=== PATIENT | female | born 1975 | race Caucasian/White ===

== ENCOUNTER 2018-05-10 10:54 | Day surgery (SDC) | payer BC ==
[~2018-05-10] VITALS: Ht 180.3 cm; Wt 90.3 kg
[~2018-05-10 10:54] MED LIST: ACET325; ACET500; ALBU90OI INH; AMOCLA875 PO; AMOX500 PO; AZIT250 PO; CEFD300 PO; CEPH500 PO; CETI10 PO; CIPR500 PO; COLD; CYCL10 PO; DIAZ5 PO; DIPH25; DIPH50 PO; ESCI10; ESCI10 PO; ESCI20; GABA300 PO; GUAI600T33; GUAPHELA PO; HYDACE5 PO; HYDCHL50 PO; IBUP200; IBUP800; INSULANPEN SC; LISI5 PO; LITH300C; METF500 PO; METH10 PO; Metformin HCl500 MG PO; NAPR220; NAPR500; NAPR550 PO; ONDA4 PO; OXYACE5T PO; OXYC10TA19 PO; OXYC5 PO; OXYM.05NI; PENVK500 PO; PRED10 PO; PROACE100 PO; PROM25 PO; Prinivil10 MG PO; RXDIPATR PO; RXNAPNA550 PO; RXONDA4ODT MM; RXPROM25 PO; SULTRIDS PO; VALA500 PO; VENL75ER; Zofran Odt4 MG SL; [UNRECOGNIZED DRUG - OTHER]; [UNRECOGNIZED DRUG - REMARK]
== END 2018-05-10 12:35 | disposition home or self-care (01) ==
LOC: ORSCSDS 10:54
PROVIDERS: Student in an Organized Health Care Education/Training Program
PROC: 0DB68ZX Excision of Stomach, Via Natural or Artificial Opening Endoscopic, Diagnostic (ICD-10-PCS; principal; 2018-05-10 12:00)
PROC: 0DB98ZX Excision of Duodenum, Via Natural or Artificial Opening Endoscopic, Diagnostic (ICD-10-PCS; principal; 2018-05-10 12:00)
DX: R19.7 Diarrhea, unspecified (principal); K44.9 Diaphragmatic hernia without obstruction or gangrene; R10.13 Epigastric pain; R11.2 Nausea with vomiting, unspecified; K29.50 Unspecified chronic gastritis without bleeding; E11.9 Type 2 diabetes mellitus without complications; J45.909 Unspecified asthma, uncomplicated; F32.9 Major depressive disorder, single episode, unspecified; I10 Essential (primary) hypertension; F17.210 Nicotine dependence, cigarettes, uncomplicated; Z68.33 Body mass index [BMI] 33.0-33.9, adult; E66.01 Morbid (severe) obesity due to excess calories; Z79.4 Long term (current) use of insulin; Z79.899 Other long term (current) drug therapy; F43.10 Post-traumatic stress disorder, unspecified
CPT/HCPCS: 82947; 88305; 88341; 88342; J7120

== ENCOUNTER 2018-11-28 23:14 | Emergency (ER) | payer OTHER, BC ==
[~2018-11-28] VITALS: Ht 180.3 cm; Wt 89.8 kg
[2018-11-29] MEDS ORDERED: CYCL10 PO (00:37)
== END 2018-11-29 00:50 | disposition home or self-care (01) ==
LOC: ER 23:14
DX: S43.401A Unspecified sprain of right shoulder joint, initial encounter (principal); V89.2XXA Person injured in unspecified motor-vehicle accident, traffic, initial encounter; M79.652 Pain in left thigh; Z88.2 Allergy status to sulfonamides; Z88.8 Allergy status to other drugs, medicaments and biological substances; Z79.899 Other long term (current) drug therapy; Z79.4 Long term (current) use of insulin; I10 Essential (primary) hypertension; F17.200 Nicotine dependence, unspecified, uncomplicated
CPT/HCPCS: 73030; 73522; 73552; 99284-25

== ENCOUNTER → 2018-12-14 | Outpatient (CLI) | payer BC ==
[2018-12-14 18:45] LABS: Bilirubin, Urine Neg (Neg); Blood, Urine Neg (Neg); Glucose Qualitative, Urine 4+ (Neg); Ketones, Urine 1+ (Neg); Leukocyte Esterase, Urine Neg (Neg); Nitrite, Urine Neg (Neg); Protein, Urine Neg (Neg); Specific Gravity, Urine 1.015 (1.003-1.022); Urobilinogen, Urine NORM (Normal)
[2018-12-14 19:14] LABS: Appearance, Urine Clear (Clear); Color, Urine Yellow (P-Yellow)
== END ==
LOC: LAB SHORT 17:50 → LAB 17:50
PROVIDERS: Registered Nurse
DX: R31.9 Hematuria, unspecified (principal)
CPT/HCPCS: 81003

== ENCOUNTER 2019-10-10 12:00 | Day surgery (SDC) | payer BC ==
[~2019-10-10] VITALS: Ht 180.3 cm; Wt 87.6 kg
--- NOTE | 2019-10-10 13:23 | NUR ---
10/10/19 1323 Caty Brown V DUONEB GIVEN PER ANESTHESIA ORDERS D/T BILAT INSP/EXP WHEEZES HEARD T/O. 5ML OF LIDOCANE 4% ALSO GIVEN VIA NEBULIZER PER ANESTHESIA ORDERS.
== END 2019-10-10 15:22 | disposition home or self-care (01) ==
LOC: ORSCSDS 12:00
PROVIDERS: Student in an Organized Health Care Education/Training Program
PROC: 0DB68ZX Excision of Stomach, Via Natural or Artificial Opening Endoscopic, Diagnostic (ICD-10-PCS; principal; 2019-10-10 13:30)
PROC: 0DBN8ZX Excision of Sigmoid Colon, Via Natural or Artificial Opening Endoscopic, Diagnostic (ICD-10-PCS; principal; 2019-10-10 13:30)
DX: R19.4 Change in bowel habit (principal); D12.5 Benign neoplasm of sigmoid colon; K29.50 Unspecified chronic gastritis without bleeding; K31.89 Other diseases of stomach and duodenum; K44.9 Diaphragmatic hernia without obstruction or gangrene; E11.9 Type 2 diabetes mellitus without complications; I10 Essential (primary) hypertension; J44.9 Chronic obstructive pulmonary disease, unspecified; Z79.84 Long term (current) use of oral hypoglycemic drugs; Z79.899 Other long term (current) drug therapy; F17.210 Nicotine dependence, cigarettes, uncomplicated
CPT/HCPCS: 82947; 88305; 88341; 88342; J2001; J2250; J2405; J2704; J7120

== ENCOUNTER → 2019-12-27 | Outpatient (CLI) | payer BC | LOC: LAB SHORT 13:15 → PLD 13:15 | DX: N91.5 Oligomenorrhea, unspecified (principal) | CPT/HCPCS: 88305 ==

== ENCOUNTER 2020-02-04 12:19 | Day surgery (SDC) | payer BC ==
[~2020-02-04] VITALS: Ht 180.3 cm; Wt 88.5 kg
[~2020-02-04 12:19] MED LIST changes: +ALBU8HFA2 INH; +Aspir 8181 MG PO; +BASAGLAR K100 UNIT/1; +DOCU100 PO; +MOVANTIK25 MG; +TRULICITY0.75 MG/01 SQ
--- NOTE | 2020-02-04 15:13 | NUR ---
02/04/20 1513 Mai Julio PER PT, DUE TO KIDNEY ISSUES, PT CANNOT TAKE IBUPROFEN.
== END 2020-02-04 15:05 | disposition home or self-care (01) ==
LOC: ORSCSDS 12:19
PROVIDERS: Obstetrics & Gynecology
PROC: 0UDB7ZX Extraction of Endometrium, Via Natural or Artificial Opening, Diagnostic (ICD-10-PCS; principal; 2020-02-04 13:30)
PROC: 0UJD8ZZ Inspection of Uterus and Cervix, Via Natural or Artificial Opening Endoscopic (ICD-10-PCS; principal; 2020-02-04 13:30)
DX: N92.1 Excessive and frequent menstruation with irregular cycle (principal); E11.9 Type 2 diabetes mellitus without complications; I10 Essential (primary) hypertension; J45.909 Unspecified asthma, uncomplicated; J44.9 Chronic obstructive pulmonary disease, unspecified; Z79.82 Long term (current) use of aspirin; Z79.4 Long term (current) use of insulin; Z79.899 Other long term (current) drug therapy; F17.210 Nicotine dependence, cigarettes, uncomplicated
CPT/HCPCS: 82947; 88305; J2250; J2405; J2704; J3010

== ENCOUNTER → 2020-04-24 | Outpatient (CLI) | payer BC | END | disposition home or self-care (01) | LOC: LAB SHORT 14:45 | DX: L02.92 Furuncle, unspecified (principal) | CPT/HCPCS: 87070; 87205 ==

== ENCOUNTER → 2021-11-15 | Outpatient (CLI) | payer BC | END | disposition home or self-care (01) | LOC: LAB 15:39 → LAB SHORT 15:39 | DX: E11.69 Type 2 diabetes mellitus with other specified complication (principal); Z79.4 Long term (current) use of insulin | CPT/HCPCS: 82043 ==